=== PATIENT | male | born 1980 | race Caucasian/White ===

== ENCOUNTER 2017-01-14 06:01 | Day surgery (SDC) | payer OTHER ==
[~2017-01-14 06:01] MED LIST: DEXAMETHASONE 4 MG/ML VIAL IVP ONE; GLYCOPYRROLATE 1 MG/5 ML VIAL IVP ONE; LIDOCAINE-MPF 2% 5 ML VIAL IM ONE; MIDAZOLAM 2 MG/2 ML VIAL IVP ONE; NEOSTIGMINE 1 MG/1 ML 10 ML MDV IVP ONE; ONDANSETRON 4 MG/2 ML VIAL IVP ONE; PROPOFOL 200 MG/20 ML VIAL IVP ONE; ROCURONIUM 50 MG/5 ML VIAL IVP ONE; SUCCINYLCHOLINE 200 MG/10 ML VIAL IVP ONE; fentaNYL 100 MCG/2 ML VIAL IVP ONE
[2017-01-14] MEDS ORDERED: CELECOXIB 100 MG CAPSULE PO ONE (06:25)
[2017-01-14] MEDS ORDERED: ceFAZolin 2 GM/50 ML 2 GM/50 ML BAG IV ONE (06:27)
[2017-01-14] MEDS ORDERED: ACETAMINOPHEN 1,000 MG/100 ML 100 ML IV ONE (06:28)
[2017-01-14] MEDS ORDERED: LACTATED RINGERS 1,000 ML IV ONE (07:07)
[2017-01-14] MEDS ORDERED: BUPIVACAINE 0.25% PF 30 ML VIAL SUBQ ONE ×2 (09:01)
[2017-01-14] MEDS: HYDROmorphone 1 MG/ML SYRINGE ONE ×2 (10:12→10:23)
--- NOTE | 2017-01-14 11:01 | XRAY Report ---
TWO-VIEW RIGHT SHOULDER: 01/14/2017 CLINICAL INDICATION: Postop. FINDINGS: Frontal and scapular Y views of the right shoulder demonstrate postoperative changes. The re is no evidence of acute fracture or dislocation. No radiopaque foreign body is seen in the soft t issues. IMPRESSION: POSTOPERATIVE CHANGES. NO EVIDENCE OF FRACTURE. JOB #: [id number] EXT JOB #:[id number]
[2017-01-14] MEDS ORDERED: oxyCODONE 5 MG TABLET ONE (11:21)
[2017-01-14 12:09] VITALS: BP 120/78
--- NOTE | 2017-01-17 10:27 | OPERATIVE REPORT ---
DATE OF SURGERY: 01/14/2017 00:00:00 [facility] PREOPERATIVE DIAGNOSES 1. Right shoulder superior labrum anterior to posterior (SLAP) tear. 2. Right long head biceps tendinopathy. POSTOPERATIVE DIAGNOSES 1. Right shoulder superior labrum anterior to posterior (SLAP) tear. 2. Right long head biceps tendinopathy. OPERATIONS PERFORMED 1. Right shoulder arthroscopy with debridement. 2. Right open biceps tenodesis. SURGEON: Luda Glaser MD ELECTRICAL EXPERIMENTAL MECHANIC SURGEON: Kishor Thompson MD OPERATIONS SUPERVISOR CHEMICAL CLEANING 1. Byron Araujo CRNA 2. Phong Martin CRNA CIRCULATING NURSE 1. Nikita Costello RN 2. Ta Abdul RN SCRUB TECHS 1. Dorothea Galan. 2. Cindy Burk. ANESTHESIA 1. General via endotracheal tube. 2. Right interscalene nerve block. IV FLUIDS: 1300 mL lactated Ringer's. ESTIMATED BLOOD LOSS: 5 mL. ANTIBIOTICS: 2 grams Ancef IV. SPECIMENS: None. COMPLICATIONS: None. IMPLANTS: Arthrex 6.25 x 15 mm tenodesis screw. COMPLICATIONS: None. INDICATIONS FOR SURGERY: This is a 36-year-old male with a history of right shoulder pain that began in June 2015. He had a 2 ultrasound-guided long head biceps tendon sheath injections with significant relief of his symptoms; however , his symptoms returned. Treatment options to include risks, benefits, indications, and expectations were discussed with the patient. Risks of surgery to include, but not limited to infection, bleeding, damage to neurovascular structures, need for additional surgery, persistent or worsened pain, recurrent labral tears, tenodesis failure, decreased range of motion or stiffness, iatrogenic chondromalacia, iatrogenic fracture, deep vein thrombosis, pulmonary embolism, loss of limb, and loss of life, were discussed with the patient. All questions were answered, the patient elected to proceed with surgery and informed consent was obtained. DESCRIPTION OF PROCEDURE: The patient was met in the preoperative hold area on the morning of surgery, where we confirmed that we had the correct patient, planned to do the correct procedure, had the correct extremity, which was the right upper extremity identified. Prior to the patient receiving any medications , the operative extremity was initialed by the surgeon. The patient then under light sedation had a right interscalene nerve block performed by Anesthesia. The patient was then brought back to the operating room in stable condition and placed supine on the operating room table. All bony prominences were well padded and sequential compression devices were placed on the bilateral lower extremities. General anesthesia was induced without complication and endotracheal tube was placed. The patient was then positioned into the beach chair position, ensuring that we maintained the anatomic position and that all bony prominences remained well-padded. Examination of the right shoulder under anesthesia showed forward flexion to 180 degrees, abduction to 180 degrees, external rotation to 65 degrees and a negative anterior and posterior load and shift test. The right shoulder was then prepped and draped in the usual sterile fashion. After final draping, an additional ChloraPrep was utilized on the operative site. Three minutes were allowed to elapse to enable the ChloraPrep to dry. We held a surgical timeout where we confirmed that we had the correct patient, planned to do the correct procedure, had the correct extremity, which was the right upper extremity, identified. We also confirmed all necessary gear was in the room and confirmed sterile, that the patient had received preoperative antibiotics and that no members of the operative team had any concern. We began by injecting 30 mL of arthroscopy fluid into the articular space through the planned posterior portal. We then used a #11 blade to make a skin incision and then introduced a blunt trocar into the shoulder. We then placed the camera into the shoulder and began our diagnostic examination. Immediately on entering the shoulder, significant amount of synovitic tissue in the anterior capsule, as well as fraying of the labrum on the superior portion was noted. We then utilized an 18-gauge needle to localize the appropriate place for the anterior portal and the rotator cuff interval. After identifying this location we then used a #11 blade and a skin incision and then passed a switching stick through the incision and into the shoulder joint. We then dilated over this and placed a cannula. We then inserted our probe and continued our examination. The superior labrum in the SLAP region was noted to be frayed as well as partially detached from the glenoid with a peel back sign. The remainder of the labrum was intact. There was a small amount of chondromalacia on the humeral head. The rotator cuff was intact. No HAGL lesion. We then inserted a biter and detached the long head of the biceps from the labrum. We then introduced a sucker shaver and debrided the frayed labrum, as well as the biceps tendon stump. We then removed all arthroscopic equipment. We then turned our attention to the biceps tenodesis. We made an incision in line with the arm that was approximately 1 cm above the inferior border of the pectoralis and 2 cm below. After sharply incising the skin, we utilized electrocautery to obtain hemostasis, dissecting through the subcuticular layer. We then incised the fascia overlying the muscle and bluntly dissected by fingers to the bicipital groove. The long head of biceps tendon was located inside the bicipital groove and was removed from the arm. Examination of the biceps tendon showed a significant amount of synovitis in the part of the tendon that was in the groove. The synovitis was debrided. We then marked 2 cm proximal to the musculotendinous junction. We then used #2 FiberLoop to whipstitch from the musculotendinous junction to 2 cm proximal and then truncated the remainder of the tendon. We then located in the bicipital groove the superior portion, which was approximately 1 cm above the inferior border of the pectoralis muscle and then cleared the periosteum in that region utilizing electrocautery. We then placed a guide pin through the anterior cortex in this location. We then utilized the paddle to measure the biceps tendon, which was 5 mm in diameter, therefore, decision was made to place a 6.25 x 15 mm tenodesis screw. Therefore, we drilled over the guide pin through the anterior cortex unicortically with the 6 mm drill, and then tapped this with a 6.25 mm tap. We then took 1 strand of the FiberWire that was whipstitched through the end of the tendon and passed this through the tenodesis screw. We then placed a tenodesis screw with the tendon into the unicortically drilled hole. After ensuring that the screw was fully down, both ends of the suture were pulled on to ensure that the screw did not come out. We then tied the 2 ends of the screw over the tendon. We then thoroughly irrigated the wound. We straightened his elbow to ensure that it was able to fully straighten and that the biceps tendon was appropriately taut. We then thoroughly irrigated all wounds. All wounds were closed utilizing 2-0 Vicryl in the subcuticular layer. The portal incisions were closed utilizing 3- 0 Monocryl buried in the skin and the biceps tenodesis incision was closed utilizing 3-0 Monocryl in a running fashion under the skin. All sponge counts and needle counts were correct at conclusion of the case. The patient was awakened from general anesthesia without complication and taken to the PACU in stable condition. POSTOPERATIVE PLAN: The patient will be in a sling for 6 weeks. He is not to do active biceps motion for the first 6 weeks. The patient was instructed to do common exercises and passive elbow range of motion starting postoperative day 1. I will see the patient back in 2 weeks for a wound check, at which time we will initiate physical therapy for range of motion. Report edited and signed 01/18/2017 by Luda Glaser MD. JOB #: [id number] [id number] JOB #:[id number]
== END 2017-01-14 06:02 | disposition home or self-care (01) ==
LOC: SDS 06:01
PROVIDERS: ATTEND Orthopaedic Surgery
PROC: 0LS30ZZ Reposition Right Upper Arm Tendon, Open Approach (ICD-10-PCS; 2017-01-14)
PROC: 0RBJ4ZZ Excision of Right Shoulder Joint, Percutaneous Endoscopic Approach (ICD-10-PCS; principal; 2017-01-14 07:30)
DX: S43.431A Superior glenoid labrum lesion of right shoulder, initial encounter (principal); M67.813 Other specified disorders of tendon, right shoulder; G47.30 Sleep apnea, unspecified
CPT/HCPCS: 23430; 29822; 73030; A9270; C1713; J0131; J0690; J1170; J7120